=== PATIENT | female | born 1960 | race Caucasian/White ===

== ENCOUNTER 2017-12-08 08:29 | Outpatient (CLI) | payer BC | END 2017-12-08 08:30 | disposition home or self-care (01) | LOC: BICMAMMO 08:29 | PROVIDERS: ATTEND Family Medicine | DX: Z12.31 Encounter for screening mammogram for malignant neoplasm of breast (principal); Z80.3 Family history of malignant neoplasm of breast | CPT/HCPCS: 77063; 77067 ==

== ENCOUNTER 2018-02-18 06:49 | Inpatient (IN) | payer BC, MEDICARE ==
[2018-02-12 14:00] VITALS: BMI 32.8
--- NOTE | 2018-02-17 22:24 | HP ---
HISTORY OF PRESENT ILLNESS: Mr. Vickers is known to us for previous thoracic decompression and pres ents now for progressive lower extremity dysfunction. She has new MRIs from [facility] of the t horacic and lumbar spine revealing multiple severe spinal stenosis, most significantly at T11 w ith underlying signal change of the cord as well as L3-4. These are likely considerable factors in h er symptom presentation. PAST MEDICAL HISTORY: Lower back pain and paraplegia, osteoarthritis, type 2 diabetes. CURRENT MEDICATIONS: baclofen, meloxicam. ALLERGIES: IV CONTRAST and SEAFOOD. PAST SURGICAL HISTORY: Lumbar fusion and thoracic decompression. ASSESSMENT: Myelopathy and spinal stenosis. PLAN: Dr. Sanders met with the patient, reviewed imaging and ultimately advocated for a T11 and L3-L4 decompression. He explained to the patient the risks, benefits, and alternatives of the procedure. The patient expressed understanding and would like to move forward with surgery as discussed. I do b elieve the patient is mentally competent and capable of making medical decisions for herself and we w ill move forward with surgery as planned.
[2018-02-18] MEDS ORDERED: Scopolamine 1.5 mg/72 hour Patch ONE (08:29)
[2018-02-18] MEDS ORDERED: CEFAZOLIN/Water 2 GM/20 ML SYRINGE ONE (09:39)
[2018-02-18] MEDS ORDERED: Bupivacaine HCl 0.5%/Epinephrine 1:200,000/PF 30 ml Vial ONE (10:20)
[2018-02-18] MEDS ORDERED: Thrombin 5000 UNITS/5 ML VIAL ONE (10:20)
[2018-02-18] MEDS ORDERED: Fentanyl 100 MCG/2 ML VIAL ONE ×2 (10:28→13:34)
[2018-02-18] MEDS ORDERED: Promethazine HCl 25 MG/ML VIAL ONE (10:31)
[2018-02-18] MEDS ORDERED: PHENYLEPHRINE-NS 100 MCG/ML 10 ML SYRINGE ONE ×2 (12:09→17:41)
--- NOTE | 2018-02-18 13:11 | OP ---
DATE OF PROCEDURE: 02/18/2018 SURGEON: Bora Sanders M.D. PRODUCT APPLICATIONS ENGINEER: Maikel Nunes PA-C. INDICATION: Prevent neurologic decline. 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 PROCEDURE: Reoperation L3-L4 lumbar decompression and reoperation T11-12 thoracic decompression. ANESTHESIA: General. PROCEDURE IN DETAIL: The patient was brought into the operating room and placed under general anesth esia. She was flipped from a supine to a prone position on the operating room table. A linear incis ion was planned at the L3-L4 and the T11-12 segments, both of which represent prior operative surgica l sites. After an appropriate operative pause and after prepping and draping the lumbar incision was created. Soft tissues were swept away from midline. A self-retaining retractor was placed in the w ound for optimal exposure. After confirming the appropriate level with C-arm fluoroscopy, a high-spe ed cutting drill bit as well as 1, 2 and 3 mm Kerrisons were used to complete the laminectomy at L3-L 4. After completely decompressing the segment, we redirected our attention to the T11-T12 segment wh ere a separate incision was created. After dissecting through additional scar additional bony work w as performed using the high-speed cutting drill bit as well as 1 and 2 mm Kerrisons until the T11-T12 segment were well decompressed. The wound was irrigated. Hemostasis was maintained throughout. Th e wound was then closed in anatomic layers and a pressure dressing was applied. There were no known procedural complications.
[2018-02-18] MEDS ORDERED: Acetaminophen/Codeine 30-300mg Tablet PO PRN (15:51)
[2018-02-18] MEDS ORDERED: diphenhydrAMINE 50 MG/ML VIAL IVP PRN (15:51)
[2018-02-18] MEDS ORDERED: Morphine 4 MG/ML VIAL SLOW IVP PRN (15:51)
[2018-02-18] MEDS ORDERED: Acetaminophen 325 MG TAB PO PRN (15:51)
[2018-02-18] MEDS ORDERED: Acetaminophen 650 MG Suppository PR PRN (15:51)
[2018-02-18] MEDS ORDERED: Mag-Al 1200 mg/1200 mg/30 ML UDCUP PO PRN (15:51)
[2018-02-18] MEDS ORDERED: diphenhydrAMINE 25 MG CAP PO PRN (15:51)
[2018-02-18] MEDS ORDERED: Bisacodyl 10 MG SUPP PR PRN (15:51)
[2018-02-18] MEDS ORDERED: Ondansetron HCl/PF 4 MG/2 ML Vial SLOW IVP PRN (15:52)
[2018-02-18] MEDS: Sodium Chloride 0.9% 1,000 ML IV SCH (16:46)
[2018-02-18] MEDS ORDERED: Ketorolac Tromethamine 30 MG/ML VIAL ONE (17:41)
[2018-02-18] MEDS ORDERED: Dexamethasone 20 MG/5 ML VIAL ONE (17:41)
[2018-02-18] MEDS ORDERED: Glycopyrrolate 0.2 MG/ML 5 ML SYRINGE ONE (17:41)
[2018-02-18] MEDS ORDERED: Metoclopramide HCl 10 MG/2 ML VIAL ONE (17:41)
[2018-02-18] MEDS ORDERED: Esmolol 100 MG/10 ML VIAL ONE (17:41)
[2018-02-18] MEDS ORDERED: Ondansetron HCl/PF 4 MG/2 ML Vial ONE (17:41)
[2018-02-18] MEDS ORDERED: ePHEDrine/0.9% NaCl/PF SYRINGE 50 mg/10 ml ONE (17:41)
[2018-02-18] MEDS ORDERED: PROPOFOL 200 MG/20 ML VIAL ONE (17:41)
[2018-02-18] MEDS ORDERED: Lidocaine 1% PF 5 ML VIAL ONE (17:41)
[2018-02-18] MEDS: Acetaminophen/Codeine 30-300mg Tablet PO PRN (17:57)
[2018-02-18] MEDS: CEFAZOLIN/Water 2 GM/20 ML SYRINGE SLOW IVP SCH (17:58)
[2018-02-18] MEDS: Pregabalin 50 MG CAP PO SCH (20:51)
[2018-02-18] MEDS: Acetaminophen 500 MG TAB PO SCH (20:52)
[2018-02-18] MEDS: Loratadine 10 MG TAB PO SCH (20:52)
[2018-02-18] MEDS: metFORMIN 500 MG TAB PO SCH (20:52)
[2018-02-18] MEDS: Cyclobenzaprine 10 MG TAB PO PRN (20:56)
[2018-02-19] MEDS: CEFAZOLIN/Water 2 GM/20 ML SYRINGE SLOW IVP SCH (02:12)
[2018-02-19] MEDS: Sodium Chloride 0.9% 1,000 ML IV SCH ×2 (05:54→17:50)
[2018-02-19] MEDS: Pregabalin 50 MG CAP PO SCH ×3 (09:24→22:02)
[2018-02-19] MEDS: Multivit, Therapeutic 1 TAB PO SCH (09:24)
[2018-02-19] MEDS: Acetaminophen 500 MG TAB PO SCH ×2 (09:24→22:03)
[2018-02-19] MEDS: metFORMIN 500 MG TAB PO SCH ×2 (09:25→22:03)
[2018-02-19] MEDS: Acetaminophen/Codeine 30-300mg Tablet PO PRN (09:25)
[2018-02-19] MEDS: Baclofen 10 MG TAB PO SCH (09:25)
[2018-02-19] MEDS: Cyclobenzaprine 10 MG TAB PO PRN ×2 (09:25→22:06)
--- NOTE | 2018-02-19 10:29 | PRG ---
DATE OF SERVICE: 02/19/2018 Ms. Vickers is postop day 1 following lumbar and thoracic decompression and is overall doing well. She had some weakness immediately postop which was likely related to some exacerbation of the severe compression and myelopathy she has at a thoracic level. I expect for this to resolve rather quickly and this morning it is already improving from yesterday. Anticipation right now is to get her over t o inpatient rehab which could be as early as later today or tomorrow. Her incisions are well approxi mated with no drainage or dehiscence and she is actually quite comfortable at present. She plans to be up with the nursing staff later this morning and this afternoon. We will plan to continue to foll ow until her discharge to rehab.
[2018-02-19] MEDS: Loratadine 10 MG TAB PO SCH (22:02)
[2018-02-20] MEDS: Sodium Chloride 0.9% 1,000 ML IV SCH ×2 (07:50→21:28)
[2018-02-20] MEDS ORDERED: metFORMIN 500 MG TAB ONE (08:39)
[2018-02-20] MEDS ORDERED: Baclofen 10 MG TAB ONE (08:40)
[2018-02-20] MEDS ORDERED: Pregabalin 50 MG CAP ONE (08:41)
[2018-02-20] MEDS ORDERED: Acetaminophen 500 MG TAB ONE (08:42)
[2018-02-20] MEDS ORDERED: Multivit, Therapeutic 1 TAB ONE (08:43)
[2018-02-20] MEDS: Acetaminophen 500 MG TAB PO SCH ×2 (11:58→21:18)
[2018-02-20] MEDS: metFORMIN 500 MG TAB PO SCH ×2 (11:59→21:19)
[2018-02-20] MEDS: Multivit, Therapeutic 1 TAB PO SCH (11:59)
[2018-02-20] MEDS: Baclofen 10 MG TAB PO SCH (11:59)
[2018-02-20] MEDS: Pregabalin 50 MG CAP PO SCH ×3 (11:59→21:19)
[2018-02-20] MEDS: Acetaminophen/Codeine 30-300mg Tablet PO PRN ×2 (17:16→21:20)
[2018-02-20] MEDS: Loratadine 10 MG TAB PO SCH (21:18)
[2018-02-20] MEDS: Cyclobenzaprine 10 MG TAB PO PRN (21:20)
--- NOTE | 2018-02-21 00:59 | PRG ---
DATE OF SERVICE: 02/20/2018 Ms. Vickers is today status post decompression for thoracic myelopathy and severe lumbar stenosis. She is doing quite well. She presented with a fairly profound lower extremity limb dysfunction was d ifficulty with standing for the most part unchanged. This morning she reports minimal to no pa in. We await insurance approval for rehabilitation disposition best interest. Hopefully, that will take place today; if not, perhaps tomorrow.
[2018-02-21] MEDS: Baclofen 10 MG TAB PO SCH (08:52)
[2018-02-21] MEDS: Pregabalin 50 MG CAP PO SCH ×3 (08:53→20:45)
[2018-02-21] MEDS: Acetaminophen 500 MG TAB PO SCH ×2 (08:53→20:43)
[2018-02-21] MEDS: metFORMIN 500 MG TAB PO SCH ×2 (08:54→20:45)
[2018-02-21] MEDS: Multivit, Therapeutic 1 TAB PO SCH (08:54)
[2018-02-21] MEDS ORDERED: Milk Of Magnesia 30 ML UDCUP PO PRN (13:08)
--- NOTE | 2018-02-21 14:00 | PRG ---
DATE OF SERVICE: 02/21/2018 Ms. Vickers was admitted to undergo revision T11-T12 and L3-L4 laminectomy with decompression. Lena ent did well with the procedure. Today, she states she feels stronger on her feet, though continues to experience significant left lower extremity weakness. She does state she has been using a walker and walking the llanos again with good improvement in gait, stability, and left lower extremity strengt h. Her incisions are clean, dry, and intact and some drainage onto the dressing, but there is no act juliet drainage that I can express. I have asked our nursing staff to recover the incision with clean d ry gauze and tape. The patient continues to remain at neurologic baseline with full strength in the right lower extremity, but is antigravity, though has diffuse weakness into the left lower extremity. Again, she reports that her life feels stronger today. The main issue now is awaiting rehab placem ent via insurance for insurance approval. She is stable for discharge at any time. We will continue to follow her. Please call with any changes in patient's neurologic status.
[2018-02-21] MEDS: Sodium Chloride 0.9% 1,000 ML IV SCH (16:04)
[2018-02-21] MEDS: Loratadine 10 MG TAB PO SCH (20:47)
[2018-02-21] MEDS: Cyclobenzaprine 10 MG TAB PO PRN (20:48)
[2018-02-21] MEDS: Acetaminophen/Codeine 30-300mg Tablet PO PRN (20:48)
[2018-02-22] MEDS: Sodium Chloride 0.9% 1,000 ML IV SCH ×2 (00:11→15:28)
[2018-02-22] MEDS: metFORMIN 500 MG TAB PO SCH ×2 (08:49→21:09)
[2018-02-22] MEDS: Baclofen 10 MG TAB PO SCH (08:49)
[2018-02-22] MEDS: Acetaminophen 500 MG TAB PO SCH ×2 (08:49→21:08)
[2018-02-22] MEDS: Pregabalin 50 MG CAP PO SCH ×3 (08:50→21:09)
[2018-02-22] MEDS: Multivit, Therapeutic 1 TAB PO SCH (08:59)
--- NOTE | 2018-02-22 09:52 | PRG ---
DATE OF SERVICE: 02/22/2018 Ms. Vickers is now postoperative day #4, having undergone thoracic and lumbar decompressive laminect omies. She is sitting up in a chair eating breakfast and smiling. She states overall she is doing w ell other than not having a bowel movement. She has been up walking. She has a stable weakness into the left lower extremity, but good strength in the right lower extremity. She is stable for dischar . We are awaiting insurance approval for shelter facility. Please call with susy garsia or changes in patient's neurologic status.
[2018-02-22] MEDS: Loratadine 10 MG TAB PO SCH (21:09)
[2018-02-22] MEDS: Cyclobenzaprine 10 MG TAB PO PRN (21:10)
[2018-02-22] MEDS: Acetaminophen/Codeine 30-300mg Tablet PO PRN (21:11)
[2018-02-23] MEDS: Sodium Chloride 0.9% 1,000 ML IV SCH ×2 (03:26→16:29)
[2018-02-23] MEDS: Pregabalin 50 MG CAP PO SCH ×3 (08:39→20:44)
[2018-02-23] MEDS: Baclofen 10 MG TAB PO SCH (08:39)
[2018-02-23] MEDS: Acetaminophen 500 MG TAB PO SCH ×2 (08:39→20:43)
[2018-02-23] MEDS: Multivit, Therapeutic 1 TAB PO SCH (08:40)
[2018-02-23] MEDS: metFORMIN 500 MG TAB PO SCH ×2 (08:40→20:44)
[2018-02-23] MEDS: Loratadine 10 MG TAB PO SCH (20:45)
[2018-02-23] MEDS: Cyclobenzaprine 10 MG TAB PO PRN (20:47)
[2018-02-24] MEDS: Sodium Chloride 0.9% 1,000 ML IV SCH ×2 (06:05→19:52)
[2018-02-24] MEDS: Baclofen 10 MG TAB PO SCH (09:19)
[2018-02-24] MEDS: Pregabalin 50 MG CAP PO SCH ×2 (09:19→15:44)
[2018-02-24] MEDS: Acetaminophen 500 MG TAB PO SCH (09:19)
[2018-02-24] MEDS: Multivit, Therapeutic 1 TAB PO SCH (09:21)
[2018-02-24] MEDS: metFORMIN 500 MG TAB PO SCH (09:21)
--- NOTE | 2018-02-24 11:57 | PRG ---
DATE OF SERVICE: 02/24/2018 Ms. Vickers continues to recover from a thoracic and lumbar decompression for myelopathy. She has b een slowly mobilizing with a walker. She remains quite weak in the lower extremities with altered se nsation. We have been waiting since surgery for approval from the insurance company to move towards inpatient rehab which would be in her best interest. As expected, they have created a lengthy delay in disposition. If we do not hear definitively from them today, will dismiss her home with an effort to try to get her into rehab from home, given that she has maximized treatment management in the acu te hospital setting.
[2018-02-24 20:05] VITALS: BP 146/91; TEMP 97.6
== END 2018-02-24 19:46 | disposition home or self-care (01) | DRG 519 ==
LOC: SDC 06:49 → SURG B 15:39
PROVIDERS: ADMIT Neurological Surgery; ATTEND Neurological Surgery
PROC: 00NX0ZZ Release Thoracic Spinal Cord, Open Approach (ICD-10-PCS; principal; 2018-02-18)
PROC: 01NB0ZZ Release Lumbar Nerve, Open Approach (ICD-10-PCS; 2018-02-18)
DX: M48.062 Spinal stenosis, lumbar region with neurogenic claudication (principal); M47.14 Other spondylosis with myelopathy, thoracic region; M19.90 Unspecified osteoarthritis, unspecified site; E11.9 Type 2 diabetes mellitus without complications; Z98.1 Arthrodesis status; Z91.041 Radiographic dye allergy status; Z91.013 Allergy to seafood
CPT/HCPCS: 76001; 90471; 90686; 96374; G0008; G8978-GP-CK; G8979-GP-CJ; G8987-GO-CK; G8988-GO-CI; J0131; J0670; J1100; J1885; J2001; J2405; J2550; J2704; J2765; J3010

== ENCOUNTER 2018-09-25 10:45 | Outpatient (CLI) | payer BC ==
--- NOTE | 2018-09-25 11:17 | MMO ---
Bilateral MAMMO Bilat Screen [facility]. CLINICAL HISTORY: Patient is 58 years old and is seen for screening. The patient has the following family history of breast cancer: sister, at age 54. The patient has no personal history of cancer. VIEWS: The views performed were: bilateral craniocaudal with tomosynthesis and bilateral mediolateral oblique with tomosynthesis. FILMS COMPARED: The present examination has been compared to a prior imaging study performed at [facility] on 12/08/2017. MAMMOGRAM FINDINGS: There are scattered fibroglandular densities. There are stable benign appearing calcifications seen in both breasts. There are no suspicious masses, suspicious calcifications, or new areas of architectural distortion. IMPRESSION: THERE IS NO MAMMOGRAPHIC EVIDENCE OF MALIGNANCY. A ROUTINE FOLLOW-UP MAMMOGRAM IN 1 YEAR IS RECOMMENDED. THE RESULTS OF THIS EXAM WERE SENT TO THE PATIENT. ACR BI-RADS Category 2 - Benign finding MAMMOGRAPHY NOTE: 1. A negative mammogram report should not delay a biopsy if a dominant of clinically suspicious mass is present. 2. Approximately 10% to 15% of breast cancers are not detected by mammography. 3. Adenosis and dense breasts may obscure an underlying neoplasm.
== END 2018-09-25 10:46 | disposition home or self-care (01) ==
LOC: BICMAMMO 10:45
PROVIDERS: ATTEND Family Medicine
DX: Z12.31 Encounter for screening mammogram for malignant neoplasm of breast (principal); Z80.3 Family history of malignant neoplasm of breast
CPT/HCPCS: 77063; 77067

== ENCOUNTER 2018-12-21 08:44 | Outpatient (CLI) | payer BC ==
--- NOTE | 2018-12-21 10:13 | RAD ---
LEFT ANKLE 3 VIEWS: HISTORY: Acute left ankle pain and swelling. FINDINGS/IMPRESSION: The ankle mortise is maintained. No fracture, dislocation, or bony destruction is seen. A large rachel ntar calcaneal spur is present. A small posterior calcaneal spur is noted. Soft tissue swelling is present. POS: [facility]
== END 2018-12-21 08:45 | disposition home or self-care (01) ==
LOC: BICRAD 08:44
PROVIDERS: ATTEND Physician Assistant Medical
DX: M25.572 Pain in left ankle and joints of left foot (principal); M79.89 Other specified soft tissue disorders; M77.32 Calcaneal spur, left foot

== ENCOUNTER 2019-09-28 11:09 | Outpatient (CLI) | payer BC, MEDICARE ==
--- NOTE | 2019-09-28 12:36 | MMO ---
Bilateral MAMMO Bilat Screen [facility]. CLINICAL HISTORY: Patient is 59 years old and is seen for screening. The patient has the following family history of breast cancer: sister, at age 54. The patient has no personal history of cancer. VIEWS: The views performed were: bilateral craniocaudal with tomosynthesis and bilateral mediolateral oblique with tomosynthesis. FILMS COMPARED: The present examination has been compared to prior imaging studies performed at [facility] on 12/08/2017 and 09/25/2018, and at [facility] on 10/30/2015 and 12/04/2016. This study has been interpreted with the assistance of computer-aided detection. MAMMOGRAM FINDINGS: There are scattered fibroglandular densities. Benign calcifications are noted bilaterally. There are no suspicious masses, suspicious calcifications, or new areas of architectural distortion. IMPRESSION: THERE IS NO MAMMOGRAPHIC EVIDENCE OF MALIGNANCY. A ROUTINE FOLLOW-UP MAMMOGRAM IN 1 YEAR IS RECOMMENDED. THE RESULTS OF THIS EXAM WERE SENT TO THE PATIENT. ACR BI-RADS Category 2 - Benign finding MAMMOGRAPHY NOTE: 1. A negative mammogram report should not delay a biopsy if a dominant of clinically suspicious mass is present. 2. Approximately 10% to 15% of breast cancers are not detected by mammography. 3. Adenosis and dense breasts may obscure an underlying neoplasm. Reported by: JAYCEE OCHOA MD Electonically Signed: [id number]
== END 2019-09-28 11:10 | disposition home or self-care (01) ==
LOC: BICMAMMO 11:09
PROVIDERS: ATTEND Family Medicine
DX: Z12.31 Encounter for screening mammogram for malignant neoplasm of breast (principal); Z80.3 Family history of malignant neoplasm of breast
CPT/HCPCS: 77063; 77067

== ENCOUNTER 2020-10-27 13:32 | Outpatient (CLI) | payer BC, MEDICARE | END 2020-10-27 13:33 | disposition home or self-care (01) | LOC: BICMAMMO 13:32 | PROVIDERS: ATTEND Family Medicine | DX: Z12.31 Encounter for screening mammogram for malignant neoplasm of breast (principal); Z80.3 Family history of malignant neoplasm of breast | CPT/HCPCS: 77063; 77067 ==

== ENCOUNTER 2021-10-30 12:52 | Outpatient (CLI) | payer BC | END 2021-10-30 12:53 | disposition home or self-care (01) | LOC: BICMAMMO 12:52 | PROVIDERS: ATTEND Family Medicine | DX: Z12.31 Encounter for screening mammogram for malignant neoplasm of breast (principal); Z80.3 Family history of malignant neoplasm of breast | CPT/HCPCS: 77063; 77067 ==

== ENCOUNTER 2022-08-06 12:21 | Outpatient (CLI) | payer MEDICARE ==
[~2022-08-06 12:21] MED LIST: Magnevist 469MG/ML 20 ML VIAL ONE
== END 2022-08-06 12:22 | disposition home or self-care (01) ==
LOC: TBSIIMAG 12:21
PROVIDERS: ATTEND Neurological Surgery
DX: M50.11 Cervical disc disorder with radiculopathy, high cervical region (principal); M50.01 Cervical disc disorder with myelopathy, high cervical region; M47.22 Other spondylosis with radiculopathy, cervical region; M47.12 Other spondylosis with myelopathy, cervical region; M51.04 Intervertebral disc disorders with myelopathy, thoracic region; M47.16 Other spondylosis with myelopathy, lumbar region; G95.89 Other specified diseases of spinal cord; Z98.890 Other specified postprocedural states
CPT/HCPCS: 72141; 72157; 72158; 82565; A9579

== ENCOUNTER 2022-08-19 08:45 | Outpatient (CLI) | payer MEDICARE ==
[2022-08-19 10:31] LABS: Anion Gap 16 mmol/L (10-20); BUN (Urea Nitrogen) 26 mg/dL (9.8-20.1); Calc. Creatinine Clearance 0 mL/min (70-130); Carbon Dioxide 26 mmol/L (22-29); Chloride 103 mmol/L (98-107); Potassium 3.8 mmol/L (3.5-5.1); Sodium 141 mmol/L (136-145)
[2022-08-19 10:32] LABS: Calcium 9.5 mg/dL (7.8-10.44); Estimated GFR 100; Glucose 197 mg/dL (70-105)
== END 2022-08-19 08:46 | disposition home or self-care (01) ==
LOC: LABBT 08:45
PROVIDERS: ATTEND Neurological Surgery
DX: Z01.818 Encounter for other preprocedural examination (principal); G95.9 Disease of spinal cord, unspecified
CPT/HCPCS: 80048; 93005; 93010

== ENCOUNTER 2022-08-21 08:29 | Day surgery (SDC) | payer MEDICARE ==
[2022-08-19 14:58] VITALS: BMI 30.1
[2022-08-21] MEDS ORDERED: Bupivacaine HCl 0.5%/Epinephrine 1:200,000/PF 30 ml Vial ONE (08:51)
[2022-08-21] MEDS ORDERED: Fentanyl 250 MCG/5 ML VIAL ONE (09:27)
[2022-08-21] MEDS ORDERED: HYDROmorphone 0.5 MG/0.5 ML SYRINGE ONE ×2 (09:27→12:06)
[2022-08-21] MEDS ORDERED: Sodium Chloride 0.9% 100 ML ONE ×2 (09:38→13:57)
[2022-08-21] MEDS ORDERED: CEFAZOLIN 2 GM VIAL ONE ×2 (09:38→13:57)
[2022-08-21] MEDS ORDERED: Rocuronium Bromide 10 MG/ML (10ML VIAL) ONE (09:51)
[2022-08-21] MEDS ORDERED: Phenylephrine 10 MG/ML VIAL ONE (09:51)
[2022-08-21] MEDS ORDERED: Ondansetron PF 4 MG/2 ML Vial ONE (09:51)
[2022-08-21] MEDS ORDERED: Metoprolol Tartrate 5 MG/5 ML VIAL ONE ×2 (09:51→11:25)
[2022-08-21] MEDS ORDERED: PROPOFOL 200 MG/20 ML VIAL ONE (09:51)
[2022-08-21] MEDS ORDERED: Lidocaine 1% PF 5 ML VIAL ONE (09:51)
[2022-08-21] MEDS ORDERED: Dexamethasone 20 MG/5 ML VIAL ONE (09:51)
[2022-08-21] MEDS ORDERED: ePHEDrine Sulfate 50 MG/10 ML VIAL ONE (09:51)
[2022-08-21] MEDS ORDERED: SUGAMMADEX SODIUM 200 MG/2 ML VIAL ONE (11:00)
[2022-08-21] MEDS ORDERED: fentaNYL 50 mcg/mL 1 mL Vial ONE (11:44)
[2022-08-21] MEDS ORDERED: Labetalol HCl 100 MG/20 ML VIAL ONE (12:52)
== END 2022-08-21 14:45 | disposition home or self-care (01) ==
LOC: SDC 08:29
PROVIDERS: ATTEND Neurological Surgery
PROC: 0RT90ZZ Resection of Thoracic Vertebral Disc, Open Approach (ICD-10-PCS; principal; 2022-08-21)
PROC: 00NX0ZZ Release Thoracic Spinal Cord, Open Approach (ICD-10-PCS; 2022-08-21)
DX: M51.04 Intervertebral disc disorders with myelopathy, thoracic region (principal); M48.04 Spinal stenosis, thoracic region; G82.20 Paraplegia, unspecified; E11.9 Type 2 diabetes mellitus without complications; G89.29 Other chronic pain; M54.9 Dorsalgia, unspecified; M19.90 Unspecified osteoarthritis, unspecified site; Z79.1 Long term (current) use of non-steroidal anti-inflammatories (NSAID); Z79.84 Long term (current) use of oral hypoglycemic drugs; Z79.899 Other long term (current) drug therapy; Z91.013 Allergy to seafood; Z91.041 Radiographic dye allergy status; Z91.048 Other nonmedicinal substance allergy status; Z98.1 Arthrodesis status; Z98.890 Other specified postprocedural states; Z99.3 Dependence on wheelchair
CPT/HCPCS: 63046; J3010; C1713; J1100; J1170; J2370; J2405; J2704; J3490

== ENCOUNTER → 2024-02-27 | Outpatient (CLI) | payer MEDICARE | LOC: BICMAMMO 14:22 | PROVIDERS: ATTEND Family Medicine | DX: Z12.31 Encounter for screening mammogram for malignant neoplasm of breast (principal); Z80.3 Family history of malignant neoplasm of breast | CPT/HCPCS: 77063; 77067 ==

== ENCOUNTER 2025-04-11 11:52 | Outpatient (CLI) | payer MEDICARE | END 2025-04-11 11:53 | disposition home or self-care (01) | LOC: BICMAMMO 11:52 | PROVIDERS: ATTEND Family Medicine | DX: Z12.31 Encounter for screening mammogram for malignant neoplasm of breast (principal); Z80.3 Family history of malignant neoplasm of breast | CPT/HCPCS: 77063; 77067 ==